=== PATIENT | male | born 1990 | race Caucasian/White ===

== ENCOUNTER 2018-06-23 18:54 | Emergency (ER) | payer OTHER, MEDICAID, SELFPAY ==
[2018-06-23 18:59] VITALS: BP 95/52; PULSE 60; RESP 22; TEMP 36.8; O2SAT 98
--- NOTE | 2018-06-23 19:13 | DI.RAD.S_ITS ---
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 COMPARISON: None. FINDINGS: Bones: There is a mildly comminuted fracture through the tuft of the 3rd distal phalanx. Carpal bones are normally aligned. No suspicious bony lesions. Soft tissues: There is a soft tissue laceration in the distal 3rd digit. IMPRESSION: 1. Mildly comminuted fracture of the tuft of the 3rd distal phalanx with associated soft tissue laceration. Dictated by: Osvaldo Fish M.D. on 06/23/2018 at 20:08 Approved by: Osvaldo Fish M.D. on 06/23/2018 at 20:09
--- NOTE | 2018-06-23 19:29 | ED_ITS ---
HPI - Wound/Laceration General Chief Complaint: Wound/Laceration Stated Complaint: Laceration right hand Time Seen by Provider: 06/23/18 19:04 Source: patient Mode of arrival: ambulatory Limitations: no limitations History of Present Illness HPI narrative: Patient is a 27 presents with right hand injury. he states that he his fingers in a running a lawnmower. He is afraid that he cut them off, although it is clearly obvious he did not cut them off. It is very difficult to tell if he has numbness or tingling, due to his severe sensitivity and anxiety. He states that he does use methamphetamine although he is trying to cut back but admits to using today. He denies any opiate abuse. Related Data Previous Rx's Medication Instructions Recorded acetaminophen [Tylenol] 650 mg PO Q4H PRN #30 tab 06/23/18 cephalexin [Keflex] 500 mg PO QID #28 cap 06/23/18 ibuprofen 800 mg PO Q8H PRN #30 tab 06/23/18 Allergies Allergy/AdvReac Type Severity Reaction Status Date / Time No Known Drug Allergies Allergy Verified 06/23/18 18:57 Review of Systems Review of Systems GENERAL: Denies chills,fever HEENT: Denies throat pain RESPIRATORY: Denies dyspnea, cough, wheezing CARDIOVASCULAR: Denies chest pain, palpitations GASTROINTESTINAL: Denies nausea, vomiting MUSCULOSKELETAL: See HPI SKIN: See HPI NEUROLOGIC: Denies weakness, dizziness, headache, numbness 8 point review of systems is negative except for those stated above and HPI PFSH Medical History (Updated 06/24/18 @ 02:14 by Melody Hopkins DO) Patient denies significant medical history (Acute) Social History Smoking Status: Current every day smoker substance use type: methamphetamine Social History Smoking Status: Current every day smoker substance use type: methamphetamine Exam Initial Vital Signs Initial Vital Signs: Vital Signs Temperature 98.2 F 06/23/18 18:59 Pulse Rate 60 06/23/18 18:59 Respiratory Rate 22 06/23/18 18:59 Blood Pressure 95/52 L 06/23/18 18:59 Pulse Oximetry 98 06/23/18 18:59 GENERAL: Very anxious very dirty young male CARDIOVASCULAR: peripheral pulses in tact, cap refill <2 sec RESPIRATORY: No respiratory distress, speaks in full sentences without difficulty EXTREMITIES: Normal range of motion, no clubbing or edema. Neurovascularly intact NEUROLOGICAL: Cranial nerves II through XII grossly intact. Normal gait and speech. SKIN: Lacerations see diagram below Extrem Hand Right Back: 1. Nail bed involvement about half the nail. No bone identified. Stellate laceration involving the distal tip. Extremely dirty 2. 2 cm laceration not involving male no bone exposure Procedures Laceration Repair Laceration 1: Site: hand Side (If applicable): right Size (cm): 3 Description: irregular and contaminated Depth: simple, single layer Local Anesthetic: lidocaine 1% and with bicarb Amount of anesthesia used (mL): 5 Pre-repair: wound explored, irrigated extensively, deep structures intact, extensive debridement and wound margins revised Skin layer closed with: nylon Size (cm): 4-0 Number of sutures: 5 Technique: simple, interrupted Subcutaneous layer closed with: chromic gut Size: 4-0 Number of sutures: 1 Laceration 2: Site: hand Side (If applicable): right (4th finger) Size (cm): 2 Description: stellate Depth: simple, single layer Local Anesthetic: lidocaine 1% Amount of anesthesia used (mL): 5 Pre-repair: wound explored, irrigated extensively, deep structures intact and extensive debridement Skin layer closed with: nylon Size (cm): 4-0 Number of sutures: 3 Nerve Block Nerve Block 1: Time out performed: Yes (right middle finger) Local Anesthetic: lidocaine 1% and with bicarb Amount of anesthesia used (mL): 5 Side: right Nerve Blocks: digital Procedure Successful: Yes Patient Tolerated Procedure: Well Complications: none Nerve Block 2: Time out performed: Yes Local Anesthetic: lidocaine 1% and with bicarb Amount of anesthesia used (mL): 5 Side: right (ring finger) Procedure Successful: Yes Patient Tolerated Procedure: Well Complications: none Course Orders Ordered: ED Orders 06/23/18 19:13 XR hand RT min 3V Stat Discontinued Medications Diphtheria/Tetanus/Acell Pertussis (Adacel) 0.5 ml IM .ONCE ONE Stop: 06/23/18 21:06 Last Admin: 06/23/18 21:13 Dose: 0.5 ml Cefazolin Sodium/Dextrose (Ancef) 1 gm in 50 mls @ 100 mls/hr IV NOW ONE Stop: 06/23/18 20:14 Last Infusion: 06/23/18 20:30 Dose: 0 mls/hr Admin: 06/23/18 19:45 Dose: 100 mls/hr Ketorolac Tromethamine (Toradol) 30 mg IV NOW ONE Stop: 06/23/18 19:30 Last Admin: 06/23/18 19:45 Dose: 30 mg Consultations Consultation #1: Dr. Alva, orthopedics was called and updated on patient. He reviewed x-ray. 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 COMPARISON: None. FINDINGS: Bones: There is a mildly comminuted fracture through the tuft of the 3rd distal phalanx. Carpal bones are normally aligned. No suspicious bony lesions. Soft tissues: There is a soft tissue laceration in the distal 3rd digit. IMPRESSION: 1. Mildly comminuted fracture of the tuft of the 3rd distal phalanx with associated soft tissue laceration. Dictated by: Osvaldo Fish M.D. on 06/23/2018 at 20:08 [facility] Narrative Medical decision making narrative: Patient was resistant to digital block due to his fear of needles however he finally did agree to it. He was hesitant to soak or scrub his hand although with water and a cracker he agreed to that as well. Hand was scrubbed as best as possible. Prior to digital blocks he required multiple alcohol wipes. He was given a dose of IV antibiotics. We discussed stopping methamphetamine which he knows he needs to do. Laceration and finger tip actually came together quite well. I discussed case with Orthopedics who agrees with outpatient follow-up. Discharge Plan Departure Patient Disposition: Home Clinical Impression: Laceration of right middle finger Qualifiers: Encounter type: initial encounter Damage to nail status: with damage Foreign body presence: unspecified Qualified Code(s): S61.312A - Laceration without foreign body of right middle finger with damage to nail, initial encounter Laceration of right ring finger Qualifiers: Encounter type: initial encounter Damage to nail status: without damage Foreign body presence: without foreign body Qualified Code(s): S61.214A - Laceration without foreign body of right ring finger without damage to nail, initial encounter Fracture of phalanx of right middle finger Qualifiers: Encounter type: initial encounter Fracture type: open Phalanx: distal Fracture alignment: nondisplaced Qualified Code(s): S62.662B - Nondisplaced fracture of distal phalanx of right middle finger, initial encounter for open fracture Discharge Date/Time: 06/23/18 21:43 Interventions: ED Discharge Assessment Last Done: 06/23/18 21:43 Instructions: Finger Fracture, DI for Laceration Repair Activity Restrictions/Additional Instructions: *You have been diagnosed with right middle and 4th finger laceration with right middle finger fracture *What to do: Keep hand clean and dry with soap and water. May change dressing in 24 hours. *Continue to take medications as directed Keflex 500 mg 4 times a day Motrin 800 mg every 8 hours if needed for pain Tylenol 650 mg every 4-6 hours if needed for pain *Follow up with your primary care provider in 2-3 days, call Orthopedics tomorrow to schedule follow-up appointment *Return to ER if you should have redness, pus, swelling, inability to move fingers or any new, worsening or concerning symptoms Prescriptions: New acetaminophen [Tylenol] 325 mg tablet 650 mg PO Q4H PRN (Reason: fever or pain) Qty: 30 RF: 0 ibuprofen 800 mg tablet 800 mg PO Q8H PRN (Reason: pain) Qty: 30 RF: 0 cephalexin [Keflex] 500 mg capsule 500 mg PO QID Qty: 28 RF: 0 Referrals: [facility] [Provider Group]
--- NOTE | 2018-06-23 19:31 | PC.NURSE ---
Refused hand soaking/wound washing. States he is hungry and wants to eat. Told NPO until we know he does not need to go to OR. Dr. Hopkins aware.
[2018-06-23 19:40] VITALS: BP 118/72; PULSE 58; RESP 18
--- NOTE | 2018-06-23 19:41 | PC.NURSE ---
Pt states he is more comfortable, at bedside.
[2018-06-23] MEDS: KETOROLAC 60 MG/2 ML VIAL 30 MG IV (19:45)
[2018-06-23] MEDS: CEFAZOLIN 1 GM/50 ML FROZ.PIGGY IV (19:45)
[2018-06-23 21:00] VITALS: BP 120/67; PULSE 76; RESP 23; O2SAT 97
[2018-06-23] MEDS: TET,DIPH,PERTUSS(ACELL),VAC/PF 0.5 ML SYRINGE IM (21:13)
[2018-06-23 21:43] VITALS: BP 115/61; PULSE 87; O2SAT 100
== END 2018-06-23 21:43 | disposition home or self-care (01) ==
PROVIDERS: Emergency Provider Emergency Medicine
DX: S61.312A Laceration without foreign body of right middle finger with damage to nail, initial encounter (principal); S61.214A Laceration without foreign body of right ring finger without damage to nail, initial encounter; S62.662B Nondisplaced fracture of distal phalanx of right middle finger, initial encounter for open fracture; Z23 Encounter for immunization
CPT/HCPCS: 13132; 36591; 64450; 73130; 90471; 96365; 96372; 99284; 90715; J1885

== ENCOUNTER 2018-09-01 17:43 | Emergency (ER) | payer OTHER, MEDICAID, SELFPAY ==
[2018-09-01 17:47] VITALS: BP 151/89; PULSE 130; RESP 18; TEMP 36.7; O2SAT 100
--- NOTE | 2018-09-01 17:50 | PC.NURSE ---
RE: Hr: had 5 hour energy drink and another energy drink just before arrival to ED. No acute distress.
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
[2018-09-01] MEDS: KETOROLAC 60 MG/2 ML VIAL 30 MG IM (18:20)
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
[2018-09-01 18:57] VITALS: PULSE 94; RESP 18
== END 2018-09-01 18:57 | disposition home or self-care (01) ==
PROVIDERS: Emergency Provider Nurse Practitioner
DX: M54.2 Cervicalgia (principal); Y04.2XXA Assault by strike against or bumped into by another person, initial encounter; Y09 Assault by unspecified means
CPT/HCPCS: 96372; 99282; 99283; J1885

== ENCOUNTER 2018-09-28 06:23 | Emergency (ER) | payer OTHER, MEDICAID, SELFPAY ==
[2018-09-28 06:25] VITALS: BP 157/82; PULSE 99; RESP 18; TEMP 36.8; O2SAT 100; BMI 23.7
[2018-09-28] MEDS: SILVER SULFADIAZINE 1% CREAM 25 GM 1 APPLIC TOP (06:33)
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
== END 2018-09-28 06:39 | disposition home or self-care (01) ==
PROVIDERS: Emergency Provider Emergency Medicine
DX: T24.032A Burn of unspecified degree of left lower leg, initial encounter (principal); T25.012A Burn of unspecified degree of left ankle, initial encounter; T31.0 Burns involving less than 10% of body surface
CPT/HCPCS: 99283